=== PATIENT | female | born 1945 ===

== ENCOUNTER 2018-10-04 19:05 | Observation (INO) | payer MEDICARE ==
--- NOTE | 2018-10-04 20:10 | Emergency Department Record ---
History of Present Illness - General Chief Complaint: Recheck - Other Stated Complaint: INR HIGH Time Seen by Provider: 10/04/18 19:35 Source: Patient, Family Mode of arrival: Ambulatory Limitations: No limitations - History of Present Illness Initial Comments: pt sent in because she had an inr of 12 today. pt has recently had med changes but coumadin has remained the same MD Complaint: Abnormal lab Onset/Timin -: Hour(s) Initial Visit For: Other Returns Today for: Called because of abnormal lab/test Symptoms Since Prior Visit: No new symptoms - Related Data Home Medications Medication Instructions Recorded Confirmed Last Taken Atorvastatin Calcium [Lipitor] 80 mg PO DAILY 10/04/18 10/04/18 Unknown Allergies Allergy/AdvReac Type Severity Reaction Status Date / Time levofloxacin [From Levaquin] Allergy Severe RASH Verified 10/04/18 19:16 Penicillins Allergy Severe SWELLING Verified 10/04/18 19:16 (GENERAL) tetanus immune globulin Allergy Severe SWELLING Verified 10/04/18 19:16 (GENERAL) Travel Screening - Travel/Exposure Within Last 30 Days Have you traveled within the last 30 days?: No - Travel Symptoms Symptom Screening: None Review of Systems Reviewed: No additional complaints except as noted below Constitutional: Reports: As per HPI. Denies: Chills, Fever, Malaise, Night sweats, Weakness, Weight change Eyes: Reports: As per HPI. Denies: Eye discharge, Eye pain, Photophobia, Vision change ENT: Reports: As per HPI. Denies: Congestion, Dental pain, Ear pain, Epistaxis, Hearing loss, Throat pain Respiratory: Reports: As per HPI. Denies: Cough, Dyspnea, Hemoptysis, Stridor, Wheezes Cardiovascular: Reports: As per HPI. Denies: Arrhythmia, Chest pain, Dyspnea on exertion, Edema, Murmurs, Orthopnea, Palpitations, Paroxysmal nocturnal dyspnea, Rheumatic Fever, Syncope Endocrine: Reports: As per HPI. Denies: Fatigue, Heat or cold intolerance, Polydipsia, Polyuria Gastrointestinal: Reports: As per HPI. Denies: Abdominal pain, Constipation, Diarrhea, Hematemesis, Hematochezia, Melena, Nausea, Vomiting Genitourinary: Reports: As per HPI. Denies: Abnormal menses, Discharge, Dyspareunia, Dysuria, Frequency, Hematuria, Incontinence, Retention, Urgency Musculoskeletal: Reports: As per HPI. Denies: Arthralgia, Back pain, Gout, Joint swelling, Myalgia, Neck pain Skin: Reports: As per HPI. Denies: Bruising, Change in color, Change in hair/nails, Lesions, Pruritus, Rash Neurological: Reports: As per HPI. Denies: Abnormal gait, Confusion, Headache, Numbness, Paresthesias, Seizure, Tingling, Tremors, Vertigo, Weakness Psychiatric: Reports: As per HPI. Denies: Anxiety, Auditory hallucinations, Depression, Homicidal thoughts, Suicidal thoughts, Visual hallucinations Hematological/Lymphatic: Reports: As per HPI. Denies: Anemia, Blood Clots, Easy bleeding, Easy bruising, Swollen glands Past Medical History - SOCIAL HISTORY Smoking Status: Former smoker - RESPIRATORY Hx Respiratory Disorders: Yes Hx Sleep Apnea: Yes (better now) Hx of CPAP: No - CARDIOVASCULAR Hx Cardio Disorders: Yes Hx CHF: Yes Hx Hypertension: Yes Hx Irregular Heartbeat: Yes (A-fib) Comment:: high cholesterol; Murmur - NEURO Hx Neuro Disorders: Yes Hx CVA: Yes (found on CT scan -no deficits) - GI Hx GI Disorders: No - Hx Genitourinary Disorders: Yes Hx UTI: Yes - ENDOCRINE Hx Endocrine Disorders: No - MUSCULOSKELETAL Hx Musculoskeletal Disorders: Yes Hx Arthritis: Yes - PSYCH Hx Psych Problems: Yes Hx Depression: Yes - HEMATOLOGY/ONCOLOGY Hx Hematology/Oncology Disorders: Yes Hx Cancer: Yes Hx Chemotherapy: Yes Hx Radiation Therapy: No Family Medical History Any Significant Family History?: Yes Family Hx Comment (NOT TO BE USED IN PLACE OF ITEMS BELOW): Brother from Aortic rupture ; Sister w/fibro Hx Diabetes: Mother Hx Heart Disease: Father, Mother Physical Exam - General General Appearance: Alert, Oriented x3, Cooperative, No acute distress - Head Head exam: Normal inspection - Eye Eye exam: Normal appearance, PERRL, EOMI Pupils: Normal accommodation - ENT ENT exam: Normal exam, Mucous membranes moist, Normal external ear exam, Normal orophraynx Ear exam: Normal external inspection. negative: External canal tenderness Nasal Exam: Normal inspection. negative: Discharge, Sinus tenderness Mouth exam: Normal external inspection, Other (ecchymosis of tongue). negative: Tongue normal Teeth exam: Normal inspection. negative: Dental caries Throat exam: Normal inspection. negative: Tonsillar erythema, Tonsillar exudate - Neck Neck exam: Normal inspection, Full ROM. negative: Tenderness - Respiratory Respiratory exam: Normal lung sounds bilaterally. negative: Respiratory distress - Cardiovascular Cardiovascular Exam: Regular rate, Normal rhythm, Normal heart sounds - GI/Abdominal GI/Abdominal exam: Soft, Normal bowel sounds. negative: Tenderness - Rectal Rectal exam: Deferred - exam: Deferred - Extremities Extremities exam: Normal inspection, Full ROM, Normal capillary refill. negative: Tenderness Image of Full Body: 1 - ecchymosis Image of Hand: 1 - ecchymosis - Back Back exam: Reports: Normal inspection, Full ROM. Denies: Muscle spasm, Rash noted, Tenderness - Neurological Neurological exam: Alert, CN II-XII intact, Normal gait, Oriented X3 - Psychiatric Psychiatric exam: Normal affect, Normal mood - Skin Skin exam: Dry, Intact, Normal color, Warm Type of lesion: Other (ecchymosis) Course Vital Signs 10/04/18 19:22 Temperature 98.5 F Pulse Rate 68 Respiratory 16 Rate Blood Pressure 161/94 Pulse Ox 94 L Medical Decision Making - Lab Data Result diagrams: 10/04/18 20:16 Disposition Disposition: Admit Clinical Impression: Coumadin toxicity Qualifiers: Encounter type: initial encounter Injury intent: accidental or unintentional Qualified Code(s): T45.511A - Poisoning by anticoagulants, accidental (unintentional), initial encounter Decision to Admit: Admit from ER Decision to Admit Date: 10/04/18 Decision to Admit Time: 20:32 Forms: Patient Portal Access Quality - Blood Pressure Screening Does Patient Have Any of the Following: No Blood Pressure Classification: Hypertensive Reading Systolic Measurement: 161 Diastolic Measurement: 94
[2018-10-04 20:21] LABS: BASO % 0.8 % (0-6); EOS % 4.4 % (0-6); HEMATOCRIT 43.3 % (35.0-47.0); HEMOGLOBIN 13.8 gm/dl (11.6-16.0); LYMPH % 12.1 % (16-45); MEAN CELL VOLUME 86.4 fl (81-97); MEAN CORPUSCULAR HEMOGLOBIN 27.5 pg (27-33); MEAN CORPUSCULAR HGB CONC 31.9 g/dl (32-36); MEAN PLATELET VOLUME 9.6 fl (7.4-10.4); MONO % 8.7 % (0-9); PLATELET COUNT 489 K/uL (130-400); RED BLOOD COUNT 5.01 M/uL (3.80-5.40); RED CELL DISTRIBUTION WIDTH 14.2 % (11.5-14.5); WHITE BLOOD COUNT W/O DIFF 14.3 K/uL (4.2-12.2)
[2018-10-04 20:43] LABS: PROTHROMBIN TIME (PATIENT) 117.6 SECONDS (9.5-12.1)
[2018-10-04 20:44] LABS: INR 12.5
[2018-10-04] MEDS ORDERED: PHYTONADIONE 10 MG/ML AMPUL PO ONE (20:44)
[2018-10-04] MEDS ORDERED: ACETAMINOPHEN 500 MG TABLET PO PRN (22:56)
[2018-10-04] MEDS ORDERED: TEMAZEPAM 15 MG CAPSULE PO PRN (22:56)
[2018-10-04] MEDS: BUSPIRONE 5 MG TABLET PO SCH (23:50)
[2018-10-04] MEDS: CITALOPRAM 20 MG TABLET PO SCH (23:51)
[2018-10-05] MEDS ORDERED: PANTOPRAZOLE SODIUM 40 MG TABLET PO SCH (07:00)
[2018-10-05] MEDS: BUSPIRONE 5 MG TABLET PO SCH (09:20)
[2018-10-05] MEDS: CITALOPRAM 20 MG TABLET PO SCH (09:21)
[2018-10-05] MEDS ORDERED: POTASSIUM CHLORIDE 10 MEQ TAB PO SCH (10:00)
[2018-10-05] MEDS ORDERED: LISINOPRIL 20 MG TABLET PO SCH (10:00)
[2018-10-05] MEDS ORDERED: ATORVASTATIN 20 MG TABLET PO SCH (10:00)
[2018-10-05] MEDS ORDERED: FUROSEMIDE 20 MG TABLET PO SCH (10:00)
--- NOTE | 2018-10-05 10:12 | History & Physical ---
History of Present Illness - Date of Service Date of Service for History & Physical: 10/05/18 - History of Present Illness Admitting Diagnosis: hyperanticoagulated History of Present Illness: 72 yo female presents to [facility] ER for critical INT 12.6, has been on coumadin 5mg for several years s/p aortic pig valve replacement. Pt denies any diet or medication changes. Had labs drawn outpt and critical was called to nutrition director provider. Pt was contacted and instructed to go to ER. Pt reported to ER, repeat INR was 12.5, given Vitamin K 5mg and admitted for observation. Pt denies any falls or injuries but has noticed increased bruising without known cause on her legs, arms, mouth and tongue. Denies bloody stools. WBC 14.3, Hgb 13.8, Hct 43.3, Plt 489 Pt 117.6, INR 12.5 Repeat INR 2 this AM. 10/05/18 Pt resting in bed, denies any pain or concerns other than concern about INR changes with no other medication changes. Lungs CTA, IV/ holosystolic murmur noted. [facility] Pharmacist has been consulted and is addressing medication changes with pt PCP Dr Garrison. Will restart coumadin at 2.5mg, have pt f/u for repeat INR and see PCP next week. Case mgt consulted, will get follow up schedule and pt to d/c today. PCP [facility] Travel Screening - Travel/Exposure Within Last 30 Days Have you traveled within the last 30 days?: No - Travel/Exposure Within Last Year Have you traveled outside the [place] in the last year?: No - Additonal Travel Details Have you been exposed to anyone with a communicable illness?: No - Travel Symptoms Symptom Screening: None Review of Systems Constitutional: Reports: As per HPI. Denies: Chills, Fever, Malaise, Night sweats, Weakness, Weight change Eyes: Reports: As per HPI. Denies: Eye discharge, Eye pain, Photophobia, Vision change ENT: Reports: As per HPI. Denies: Congestion, Dental pain, Ear pain, Epistaxis, Hearing loss, Throat pain Respiratory: Reports: As per HPI. Denies: Cough, Dyspnea, Hemoptysis, Stridor, Wheezes Cardiovascular: Reports: As per HPI. Denies: Arrhythmia, Chest pain, Dyspnea on exertion, Edema, Murmurs, Orthopnea, Palpitations, Paroxysmal nocturnal dyspnea, Rheumatic Fever, Syncope Endocrine: Reports: As per HPI. Denies: Fatigue, Heat or cold intolerance, Polydipsia, Polyuria Gastrointestinal: Reports: As per HPI. Denies: Abdominal pain, Constipation, Diarrhea, Hematemesis, Hematochezia, Melena, Nausea, Vomiting Genitourinary: Reports: As per HPI. Denies: Abnormal menses, Discharge, Dyspareunia, Dysuria, Frequency, Hematuria, Incontinence, Retention, Urgency Musculoskeletal: Reports: As per HPI. Denies: Arthralgia, Back pain, Gout, Joint swelling, Myalgia, Neck pain Skin: Reports: As per HPI. Denies: Bruising, Change in color, Change in hair/nails, Lesions, Pruritus, Rash Neurological: Reports: As per HPI. Denies: Abnormal gait, Confusion, Headache, Numbness, Paresthesias, Seizure, Tingling, Tremors, Vertigo, Weakness Psychiatric: Reports: As per HPI. Denies: Anxiety, Auditory hallucinations, Depression, Homicidal thoughts, Suicidal thoughts, Visual hallucinations Hematological/Lymphatic: Reports: As per HPI. Denies: Anemia, Blood Clots, Easy bleeding, Easy bruising, Swollen glands Past Medical History - SOCIAL HISTORY Smoking Status: Former smoker Alcohol Use: None Drug Use: None - RESPIRATORY Hx Respiratory Disorders: Yes Hx Sleep Apnea: Yes (better now) Hx of CPAP: No - CARDIOVASCULAR Hx Cardio Disorders: Yes Hx CHF: Yes Hx Hypertension: Yes Hx Irregular Heartbeat: Yes (A-fib) Comment:: high cholesterol; Murmur - NEURO Hx Neuro Disorders: Yes Hx CVA: Yes (found on CT scan -no deficits) - GI Hx GI Disorders: No - Hx Genitourinary Disorders: Yes Hx UTI: Yes - ENDOCRINE Hx Endocrine Disorders: No - MUSCULOSKELETAL Hx Musculoskeletal Disorders: Yes Hx Arthritis: Yes - PSYCH Hx Psych Problems: Yes Hx Depression: Yes - HEMATOLOGY/ONCOLOGY Hx Hematology/Oncology Disorders: Yes Hx Cancer: Yes Hx Chemotherapy: Yes Hx Radiation Therapy: No Family Medical History Any Significant Family History?: Yes Family Hx Comment (NOT TO BE USED IN PLACE OF ITEMS BELOW): Brother from Aortic rupture ; Sister w/fibro Hx Diabetes: Mother Hx Heart Disease: Father, Mother H&P Meds/Allergies - Allergies Allergies: Allergies Allergy/AdvReac Type Severity Reaction Status Date / Time levofloxacin [From Levaquin] Allergy Severe RASH Verified 10/04/18 19:16 Penicillins Allergy Severe SWELLING Verified 10/04/18 19:16 (GENERAL) tetanus immune globulin Allergy Severe SWELLING Verified 10/04/18 19:16 (GENERAL) - Home Medications Home Medications Medication Instructions Recorded Confirmed Last Taken Atorvastatin Calcium [Lipitor] 80 mg PO DAILY 10/04/18 10/04/18 Unknown - Active Medications Active Medications: Current Medications Acetaminophen (Tylenol 500mg Tab) 1,000 mg PO Q6H PRN PRN Reason: PAIN - MILD(1-4)/FEVER Last Admin: 10/05/18 04:47 Dose: 1,000 mg Documented by: Atorvastatin Calcium (Lipitor) 80 mg PO DAILY [facility] Last Admin: 10/05/18 09:20 Dose: 80 mg Documented by: Buspirone HCl (Buspar) 7.5 mg PO BID [facility] Last Admin: 10/05/18 09:20 Dose: 7.5 mg Documented by: Citalopram Hydrobromide (Celexa) 10 mg PO DAILY [facility] Last Admin: 10/05/18 09:21 Dose: 10 mg Documented by: Furosemide (Lasix) 20 mg PO DAILY [facility] Last Admin: 10/05/18 09:21 Dose: 20 mg Documented by: Lisinopril (Zestril) 40 mg PO DAILY [facility] Pantoprazole Sodium (Protonix) 40 mg PO BIDAC [facility] Last Admin: 10/05/18 06:38 Dose: 40 mg Documented by: Potassium Chloride (Klor-Con) 10 meq PO DAILY [facility] Last Admin: 10/05/18 09:21 Dose: 10 meq Documented by: Ropinirole HCl (Requip) 1 mg PO QHS [facility] Last Admin: 10/04/18 23:50 Dose: 1 mg Documented by: Temazepam (Restoril) 15 mg PO QHS PRN PRN Reason: INSOMNIA Last Admin: 10/04/18 23:48 Dose: 15 mg Documented by: Physical Exam - Vital Signs Vital Signs: Vital Signs - Last 24 Hrs Temp Pulse Pulse Resp BP BP Pulse Ox 10/05/18 09:00 20 10/05/18 08:34 97.3 F L 85 18 148/76 94 L 10/05/18 06:00 98.1 F 80 16 125/66 91 L 10/05/18 02:00 97.2 F L 92 H 16 132/69 94 L 10/04/18 22:50 97.9 F 85 18 156/85 96 10/04/18 22:40 82 16 144/83 95 10/04/18 20:51 86 16 142/81 96 10/04/18 19:22 98.5 F 68 16 161/94 94 L - General General Appearance: Alert, Oriented x3, Cooperative, No acute distress Limitations: No limitations - Head Head exam: Normal inspection - Eye Eye exam: Normal appearance, PERRL, EOMI Pupils: Normal accommodation - ENT ENT exam: Normal exam, Mucous membranes moist, Normal external ear exam, Normal orophraynx Ear exam: Normal external inspection. negative: External canal tenderness Nasal Exam: Normal inspection. negative: Discharge, Sinus tenderness Mouth exam: Normal external inspection, Other (ecchymosis of tongue and left lower lip). negative: Tongue normal Teeth exam: Normal inspection. negative: Dental caries Throat exam: Normal inspection. negative: Tonsillar erythema, Tonsillar exudate - Neck Neck exam: Normal inspection, Full ROM. negative: Tenderness - Respiratory Respiratory exam: Normal lung sounds bilaterally. negative: Respiratory distress - Cardiovascular Cardiovascular Exam: Regular rate, Normal rhythm, Systolic murmur Peripheral Pulses: 2+: Radial (R), Radial (L), Dorsalis Pedis (R), Dorsalis Pedis (L) - GI/Abdominal GI/Abdominal exam: Soft, Normal bowel sounds. negative: Tenderness - Rectal Rectal exam: Deferred - exam: Deferred - Extremities Extremities exam: Normal inspection, Full ROM, Normal capillary refill. negati ve: Tenderness - Back Back exam: Reports: Normal inspection, Full ROM. Denies: Muscle spasm, Rash noted, Tenderness - Neurological Neurological exam: Alert, CN II-XII intact, Normal gait, Oriented X3 - Psychiatric Psychiatric exam: Normal affect, Normal mood - Skin Skin exam: Dry, Intact, Normal color, Warm Type of lesion: Other (ecchymosis) Results - Labs Result Diagrams: 10/04/18 20:16 Labs Last 24 Hours: Laboratory Results - last 24 hr 10/04/18 10/04/18 10/05/18 20:16 20:16 06:42 WBC 14.3 H RBC 5.01 Hgb 13.8 Hct 43.3 MCV 86.4 MCH 27.5 MCHC 31.9 L RDW 14.2 Plt Count 489 H MPV 9.6 Gran % 74.0 Lymphocytes % 12.1 L Monocytes % 8.7 Eosinophils % 4.4 Basophils % 0.8 Absolute Neutrophils 10.60 PT 117.6 H* 20.0 H INR 12.5 H* 2.0 VTE H&P Assessment - Risk for VTE Risk for VTE: Yes Risk Level: Moderate Risk Assessment Date: 10/05/18 Risk Assessment Time: 10:13 VTE Orders Placed or Will Be Placed: No VTE Reason for No Prophylaxis: Contraindicated (pt on coumadin)
--- NOTE | 2018-10-05 10:15 | Discharge Summary ---
Providers Discharge Summary Date: 10/05/18 Date of admission: 10/04/18 22:37 Expected Date of Discharge: 10/05/18 Attending physician: JOHANA CROOK Primary care physician: JOHANA CROOK Physical Exam - Vital Signs Vital Signs: Vital Signs - Last 24 Hrs Temp Pulse Pulse Resp BP BP Pulse Ox 10/05/18 09:00 20 10/05/18 08:34 97.3 F L 85 18 148/76 94 L 10/05/18 06:00 98.1 F 80 16 125/66 91 L 10/05/18 02:00 97.2 F L 92 H 16 132/69 94 L 10/04/18 22:50 97.9 F 85 18 156/85 96 10/04/18 22:40 82 16 144/83 95 10/04/18 20:51 86 16 142/81 96 10/04/18 19:22 98.5 F 68 16 161/94 94 L - General General Appearance: Alert, Oriented x3, Cooperative, No acute distress Limitations: No limitations - Head Head exam: Normal inspection - Eye Eye exam: Normal appearance, PERRL, EOMI Pupils: Normal accommodation - ENT ENT exam: Normal exam, Mucous membranes moist, Normal external ear exam, Normal orophraynx Ear exam: Normal external inspection. negative: External canal tenderness Nasal Exam: Normal inspection. negative: Discharge, Sinus tenderness Mouth exam: Normal external inspection, Other (ecchymosis of tongue and left lower lip). negative: Tongue normal Teeth exam: Normal inspection. negative: Dental caries Throat exam: Normal inspection. negative: Tonsillar erythema, Tonsillar exudate - Neck Neck exam: Normal inspection, Full ROM. negative: Tenderness - Respiratory Respiratory exam: Normal lung sounds bilaterally. negative: Respiratory distress - Cardiovascular Cardiovascular Exam: Regular rate, Normal rhythm, Systolic murmur Peripheral Pulses: 2+: Radial (R), Radial (L), Dorsalis Pedis (R), Dorsalis Pedis (L) - GI/Abdominal GI/Abdominal exam: Soft, Normal bowel sounds. negative: Tenderness - Rectal Rectal exam: Deferred - exam: Deferred - Extremities Extremities exam: Normal inspection, Full ROM, Normal capillary refill. negative: Tenderness - Back Back exam: Reports: Normal inspection, Full ROM. Denies: Muscle spasm, Rash noted, Tenderness - Neurological Neurological exam: Alert, CN II-XII intact, Normal gait, Oriented X3 - Psychiatric Psychiatric exam: Normal affect, Normal mood - Skin Skin exam: Dry, Intact, Normal color, Warm Type of lesion: Other (ecchymosis) Hospitalization - Hospitalization Admission Diagnosis: hyperanticoagulated - Problem List/Discharge Diagnosis (1) Coumadin toxicity Current Visit: Yes Status: Acute Discharge Diagnosis: Encounter type: initial encounter Injury intent: accidental or unintentional Qualified Code(s): T45.511A - Poisoning by anticoagulants, accidental (unintentional), initial encounter Base Code: T45.511A - POISONING BY ANTICOAGULANTS, ACCIDENTAL, INIT Comment: 10/05/18 -outpt INT 12.6, repeat in ER 12.5, given 5mg Vit K in ER, repeat INR 2 this AM -Counadmin 2.5mg QD started, INR being followed by [facility] Pharmacist and will see Dr Crook PCP in 1 week -D/C but pt instructed to go to ER for any falls or if she hits her head (2) DVT prophylaxis Current Visit: Yes Status: Acute Base Code: Z29.9 - ENCOUNTER FOR PROPHYLACTIC MEASURES, UNSPECIFIED Comment: 10/05/18 -coumadin therapy, INR 2, no other interventions - Hospitalization Course Disposition: Home, Self-Care Hospital Course: 72 yo female presents to [facility] ER for critical INT 12.6, has been on coumadin 5mg for several years s/p aortic pig valve replacement. Pt denies any diet or medication changes. Had labs drawn outpt and critical was called to soil conservation aide provider. Pt was contacted and instructed to go to ER. Pt reported to ER, repeat INR was 12.5, given Vitamin K 5mg and admitted for observation. Pt denies any falls or injuries but has noticed increased bruising without known cause on her legs, arms, mouth and tongue. Denies bloody stools. WBC 14.3, Hgb 13.8, Hct 43.3, Plt 489 Pt 117.6, INR 12.5 Repeat INR 2 this AM. 10/05/18 Pt resting in bed, denies any pain or concerns other than concern about INR changes with no other medication changes. Lungs CTA, IV/ holosystolic murmur noted. [facility] Pharmacist has been consulted and is addressing medication changes with pt PCP Dr Crook. Will restart coumadin at 2.5mg, have pt f/u for repeat INR and see PCP next week. Case mgt consulted, will get follow up schedule and pt to d/c today. PCP [facility] Abnormal Labs: Abnormal Lab Results 10/04/18 10/04/18 10/05/18 Range/Units 20:16 20:16 06:42 WBC 14.3 H (4.2-12.2) K/uL MCHC 31.9 L (32-36) g/dl Plt Count 489 H (130-400) K/uL Lymphocytes % 12.1 L (16-45) % PT 117.6 H* 20.0 H (9.5-12.1) SECONDS INR 12.5 H* Condition at Discharge: (2) Stable Discharge Medications - Discharge Medications Prescriptions: Warfarin Sodium [Coumadin] 2.5 mg PO ASDIR 14 Days #14 tab Home Medications: Ambulatory Orders Atorvastatin Calcium [Lipitor] 80 mg PO DAILY 10/04/18 [Last Taken Unknown] Acetaminophen [Tylenol 500Mg Tab] 1,000 mg PO Q6H PRN tablet 10/05/18 [Last Taken Unknown] Warfarin Sodium [Coumadin] 2.5 mg PO ASDIR 14 Days #14 tab 10/05/18 [Last Taken Unknown] Discharge Plan - Discharge Instructions Activity at Discharge: Increase Activity as Tolerated Diet at Discharge: Advance to Usual Diet Additional Instructions: Appointment with Dr. Crook on Saturday 10/14 at 2:40PM Quality Measures - Quality Measures Quality Measures: Advance Directives, Documentation of Current Medications in Medical Record, Elder Maltreatment Screen and Follow-Up Plan, Screening for High Blood Pressure and F/U Documented - Current Medications Quality Measure: Measure #130: Documentation of Current Medications Documentation of Current Medications: <Current Medications Documented/Reviewed> [G8427] - Blood Pressure Screening Quality Measure: Screening for High Blood Pressure and Follow-Up Documented Does Patient Have Any of the Following: Active Dx of HTN Blood Pressure Classification: Hypertensive Reading Systolic Measurement: 161 Diastolic Measurement: 94 Screening for High Blood Pressure: Patient Exclusion, Hx of HTN [G9744] - Advance Directives Quality Measure: Measure #47: Care Plan Advance Directives Established: No Advance Directives Information Provided To Patient: Already Provided Advance Directives on File: No Living Will: No Power of Reconnaissance Man: No Advance Care Planning: <Care Plan/Decision Maker Documented; Discussed & Docum ented> [[id number]] - Elder Abuse Suspicion Index Screening: Elder Abuse Suspicion Index Screening Rely on people for bathing, dressing, shopping, banking, etc: No Prevented from getting food, clothes, medication, etc: No Made to feel shamed or threatened by someone: No Forced to sign papers or use money against will: No Feel afraid, touched in ways not wanted or hurt physically: No Poor eye contact, withdrawn, malnourished, cuts or bruises: No Screening Result: Negative result EASI Reference Information: Lamont MONTERO, Carlos Enrique C, Tuan D, Jimmy Piedra.Development and validation of a tool to assist physicians identification of elder abuse: The Elder Abuse Suspicion Index (EASI ). Journal of Elder Abuse and Neglect, 2008; 20 (3): 276-300. - Elder Maltreatment Screen Quality Measures: Elder Maltreatment Screen and Follow-Up Plan Elder Maltreatment Screen: <Negative, No Follow-Up Plan Required> [G6259]
[2018-10-05] MEDS ORDERED: WARFARIN 2.5 MG TAB PO ONE (10:45)
[2018-10-05] MEDS ORDERED: ROPINIROLE HCL 1 MG TABLET PO SCH (22:00)
== END 2018-10-05 13:55 | disposition home or self-care (01) ==
LOC: ER 19:05 → MEDSURG 22:37
PROVIDERS: ADMIT Internal Medicine; ATTEND Internal Medicine
DX: T45.511A Poisoning by anticoagulants, accidental (unintentional), initial encounter (principal); I48.91 Unspecified atrial fibrillation; Z79.01 Long term (current) use of anticoagulants; I50.9 Heart failure, unspecified; I10 Essential (primary) hypertension; E78.00 Pure hypercholesterolemia, unspecified; G47.33 Obstructive sleep apnea (adult) (pediatric); M19.90 Unspecified osteoarthritis, unspecified site; Z87.891 Personal history of nicotine dependence; Z86.73 Personal history of transient ischemic attack (TIA), and cerebral infarction without residual deficits; Z85.9 Personal history of malignant neoplasm, unspecified; Z95.2 Presence of prosthetic heart valve
CPT/HCPCS: 85025; 85610 ×2; G0378 ×2; 99220; 99285

== ENCOUNTER 2018-11-28 12:04 | Emergency (ER) | payer MEDICARE ==
--- NOTE | 2018-11-28 12:19 | Emergency Department Record ---
History of Present Illness - General Chief complaint: Female Urogenital Problem Stated complaint: URINARY INFECTION Time Seen by Provider: 11/28/18 12:13 Source: Patient Mode of Arrival: Ambulatory Limitations: No limitations - History of Present Illness Initial comments: "I woke yesterday with a TUI". Pt with hx of similar. Has frequency, urgency, and dysuria. No fever or flank pains, No nausea or vomiting. No blood in urine. No hx renal stone. No AP - Related Data Previous Rx's Medication Instructions Recorded Acetaminophen [Tylenol 500Mg Tab] 1,000 mg PO Q6H PRN tablet 10/05/18 Nitrofurantoin [place] [Macrobid] 100 mg PO BID 7 Days #14 capsule 11/28/18 Allergies Allergy/AdvReac Type Severity Reaction Status Date / Time levofloxacin [From Levaquin] Allergy Severe RASH Unverified 11/07/18 13:05 Penicillins Allergy Severe SWELLING Unverified 11/07/18 13:05 (GENERAL) tetanus immune globulin Allergy Severe SWELLING Unverified 11/07/18 13:05 (GENERAL) bee venom protein (honey bee) Allergy Unverified 11/07/18 13:05 Review of Systems Constitutional: Denies: Chills, Fever, Weakness Eyes: Denies: Eye discharge, Photophobia ENT: Denies: Congestion Respiratory: Denies: Cough Cardiovascular: Denies: Arrhythmia, Chest pain, Syncope Endocrine: Reports: Polyuria. Denies: Fatigue Gastrointestinal: Denies: Abdominal pain, Diarrhea, Vomiting Genitourinary: Reports: Dysuria, Frequency, Urgency. Denies: Discharge, Hemat uria Musculoskeletal: Denies: Arthralgia, Back pain Skin: Denies: Bruising Neurological: Denies: Abnormal gait, Headache, Weakness Psychiatric: Denies: Anxiety Hematological/Lymphatic: Denies: Anemia Past Medical History - SOCIAL HISTORY Smoking Status: Former smoker Drug Use: None - RESPIRATORY Hx Respiratory Disorders: Yes Hx Sleep Apnea: Yes (better now) Hx of CPAP: No - CARDIOVASCULAR Hx Cardio Disorders: Yes Hx CHF: Yes Hx Hypertension: Yes Hx Irregular Heartbeat: Yes (A-fib) Comment:: high cholesterol; Murmur - NEURO Hx Neuro Disorders: Yes Hx CVA: Yes (found on CT scan -no deficits) - GI Hx GI Disorders: No - Hx Genitourinary Disorders: Yes Hx UTI: Yes - ENDOCRINE Hx Endocrine Disorders: No - MUSCULOSKELETAL Hx Musculoskeletal Disorders: Yes Hx Arthritis: Yes - PSYCH Hx Psych Problems: Yes Hx Depression: Yes - HEMATOLOGY/ONCOLOGY Hx Hematology/Oncology Disorders: Yes Hx Cancer: Yes Hx Chemotherapy: Yes Hx Radiation Therapy: No Family Medical History Family Hx Comment (NOT TO BE USED IN PLACE OF ITEMS BELOW): Brother from Aortic rupture ; Sister w/fibro Hx Diabetes: Mother Hx Heart Disease: Father, Mother Physical Exam - General General Appearance: Alert, Oriented x3, Cooperative, No acute distress - Head Head exam: Atraumatic, Normal inspection - Eye Eye exam: Normal appearance, PERRL - ENT ENT exam: Normal exam, Mucous membranes moist, Normal external ear exam, Normal orophraynx, TM's normal bilaterally - Neck Neck exam: Normal inspection, Full ROM. negative: Tenderness - Respiratory Respiratory exam: Normal lung sounds bilaterally. negative: Respiratory distress - Cardiovascular Cardiovascular Exam: Regular rate, Normal rhythm, Normal heart sounds - GI/Abdominal GI/Abdominal exam: Soft, Normal bowel sounds. negative: Tenderness - Extremities Extremities exam: Normal inspection - Back Back exam: Reports: Normal inspection. Denies: CVA tenderness (R), CVA tenderness (L) - Neurological Neurological exam: Alert, Normal gait, Oriented X3 - Psychiatric Psychiatric exam: Normal affect, Normal mood - Skin Skin exam: Normal color. negative: Rash Course - Reevaluation(s) Reevaluation #1: 11/28/18 12:17 hx of UTI. Anxious to leave ED as her ride is here. Disposition Disposition: Discharge Clinical Impression: UTI (urinary tract infection) Disposition: Home, Self-Care Condition: (1) Good Instructions: Urinary Tract Infection in Women (ED) Additional Instructions: take meds as instructed. Dr. Garrison in one week Return to the ED as needed. Prescriptions: Nitrofurantoin [place] [Macrobid] 100 mg PO BID 7 Days #14 capsule Forms: Patient Portal Access Time of Disposition: 12:19 Quality - Quality Measures Quality Measures: N/A - Blood Pressure Screening Does Patient Have Any of the Following: No Blood Pressure Classification: Hypertensive Reading Systolic Measurement: 120 Diastolic Measurement: 92 Screening for High Blood Pressure: Patient Exclusion, Hx of HTN [G9744]
[2018-11-28 12:24] LABS: URINE BILIRUBIN NEGATIVE (NEGATIVE); URINE BLOOD MODERATE (NEGATIVE); URINE COLOR YELLOW; URINE GLUCOSE (UA) NEGATIVE (NEGATIVE); URINE KETONE NEGATIVE (NEGATIVE); URINE LEUKOCYTE ESTERASE SMALL (NEGATIVE); URINE NITRITE NEGATIVE (NEGATIVE); URINE PROTEIN NEGATIVE (NEGATIVE); URINE UROBILINOGEN 0.2 E.U./dL (0.20 - 1.00)
[2018-11-28 12:33] LABS: URINE APPEARANCE SL CLOUDY
[2018-11-28 12:34] LABS: URINE HYALINE CAST 0 - 5 /lpf
[2018-11-28 12:35] LABS: URINE BACTERIA FEW
== END 2018-11-28 12:35 | disposition home or self-care (01) ==
LOC: ER 12:04
DX: N39.0 Urinary tract infection, site not specified (principal); Z79.01 Long term (current) use of anticoagulants; E78.00 Pure hypercholesterolemia, unspecified; I48.91 Unspecified atrial fibrillation; Z95.2 Presence of prosthetic heart valve; Z87.891 Personal history of nicotine dependence
CPT/HCPCS: 81001; 85610; 99282

== ENCOUNTER 2019-01-20 19:57 | Emergency (ER) | payer MEDICARE ==
[2019-01-20 20:15] LABS: URINE APPEARANCE CLOUDY; URINE BILIRUBIN NEGATIVE (NEGATIVE); URINE BLOOD LARGE (NEGATIVE); URINE COLOR YELLOW; URINE GLUCOSE (UA) NEGATIVE (NEGATIVE); URINE KETONE NEGATIVE (NEGATIVE); URINE LEUKOCYTE ESTERASE LARGE (NEGATIVE); URINE NITRITE NEGATIVE (NEGATIVE); URINE UROBILINOGEN 0.2 E.U./dL (0.20 - 1.00)
[2019-01-20 20:27] LABS: URINE BACTERIA 2+; URINE RBC 21 - 35 (NONE SEEN); URINE SQUAMOUS EPITHELIAL CELL 0 - 2 /hpf
[2019-01-20] MEDS ORDERED: 0.9 % SODIUM CHLORIDE 1,000 ML BAG IV ONE (20:45)
[2019-01-20 21:09] LABS: ABSOLUTE NEUTROPHIL COUNT 7.26; BASO % 0.8 % (0-6); GRAN % 63.6 % (47-80); HEMATOCRIT 41.8 % (35.0-47.0); HEMOGLOBIN 13.2 gm/dl (11.6-16.0); LYMPH % 19.8 % (16-45); MEAN CELL VOLUME 87.1 fl (81-97); MEAN CORPUSCULAR HEMOGLOBIN 27.5 pg (27-33); MEAN CORPUSCULAR HGB CONC 31.6 g/dl (32-36); MEAN PLATELET VOLUME 9.2 fl (7.4-10.4); MONO % 9.8 % (0-9); PLATELET COUNT 380 K/uL (130-400); RED CELL DISTRIBUTION WIDTH 14.4 % (11.5-14.5); WHITE BLOOD COUNT W/O DIFF 11.4 K/uL (4.2-12.2)
[2019-01-20 21:19] LABS: CREATININE 1.1 mg/dL (0.5-0.9)
[2019-01-20 21:23] LABS: INR 2.7; PROTHROMBIN TIME (PATIENT) 26.4 SECONDS (9.5-12.1)
[2019-01-20 21:26] LABS: NTpro B-NATRIURETIC PEPTIDE 336.3 pg/mL (<125)
[2019-01-20] MEDS ORDERED: CEFAZOLIN 1 Gram 1 GM/50 ML BAG IVPB ONE (22:03)
[2019-01-20] MEDS ORDERED: CEPHALEXIN 500 MG CAPSULE PO STA (22:12)
--- NOTE | 2019-01-20 22:12 | Emergency Department Record ---
History of Present Illness - General Chief complaint: Female Urogenital Problem Stated complaint: UTI Time Seen by Provider: 01/20/19 20:34 Source: Patient Mode of Arrival: Ambulatory Limitations: No limitations - History of Present Illness Initial comments: pt thinks she has a uti. she has them frequently and just finished macrobid. she has no n/v. she thought she might have had a fever. she states she feels 'dry' and needs her inr checked MD Complaint: Other Onset/Timin -: Hour(s) Location: Perineum Radiation: R flank Severity: Moderate Severity scale (1-10): 5 Quality: Burning Consistency: Intermittent Associated Symptoms: Denies other symptoms - Related Data Home Medications Medication Instructions Recorded Confirmed Last Taken Aspirin [Aspir-Low] 1 tab PO DAILY 01/20/19 01/20/19 01/20/19 Previous Rx's Medication Instructions Recorded Cephalexin [Keflex] 500 mg PO TID #20 cap 01/20/19 Allergies Allergy/AdvReac Type Severity Reaction Status Date / Time levofloxacin [From Levaquin] Allergy Severe RASH Verified 01/20/19 21:04 Penicillins Allergy Severe SWELLING Verified 01/20/19 21:04 (GENERAL) tetanus immune globulin Allergy Severe SWELLING Verified 01/20/19 21:04 (GENERAL) bee venom protein (honey bee) Allergy SWELLING Verified 01/20/19 21:04 (GENERAL) Travel Screening - Travel/Exposure Within Last 30 Days Have you traveled within the last 30 days?: No - Travel/Exposure Within Last Year Have you traveled outside the [place] in the last year?: No - Additonal Travel Details Have you been exposed to anyone with a communicable illness?: No - Travel Symptoms Symptom Screening: None Review of Systems Reviewed: No additional complaints except as noted below Constitutional: Reports: As per HPI. Denies: Chills, Fever, Malaise, Night sweats, Weakness, Weight change Eyes: Reports: As per HPI. Denies: Eye discharge, Eye pain, Photophobia, Vision change ENT: Reports: As per HPI. Denies: Congestion, Dental pain, Ear pain, Epistaxis, Hearing loss, Throat pain Respiratory: Reports: As per HPI. Denies: Cough, Dyspnea, Hemoptysis, Stridor, Wheezes Cardiovascular: Reports: As per HPI. Denies: Arrhythmia, Chest pain, Dyspnea on exertion, Edema, Murmurs, Orthopnea, Palpitations, Paroxysmal nocturnal dyspnea, Rheumatic Fever, Syncope Endocrine: Reports: As per HPI. Denies: Fatigue, Heat or cold intolerance, Polydipsia, Polyuria Gastrointestinal: Reports: As per HPI. Denies: Abdominal pain, Constipation, Diarrhea, Hematemesis, Hematochezia, Melena, Nausea, Vomiting Genitourinary: Reports: As per HPI. Denies: Abnormal menses, Discharge, Dyspareunia, Dysuria, Frequency, Hematuria, Incontinence, Retention, Urgency Musculoskeletal: Reports: As per HPI. Denies: Arthralgia, Back pain, Gout, Joint swelling, Myalgia, Neck pain Skin: Reports: As per HPI. Denies: Bruising, Change in color, Change in hair/nails, Lesions, Pruritus, Rash Neurological: Reports: As per HPI. Denies: Abnormal gait, Confusion, Headache, Numbness, Paresthesias, Seizure, Tingling, Tremors, Vertigo, Weakness Psychiatric: Reports: As per HPI. Denies: Anxiety, Auditory hallucinations, Depression, Homicidal thoughts, Suicidal thoughts, Visual hallucinations Hematological/Lymphatic: Reports: As per HPI. Denies: Anemia, Blood Clots, Easy bleeding, Easy bruising, Swollen glands Past Medical History - SOCIAL HISTORY Smoking Status: Former smoker Alcohol Use: None Drug Use: None - RESPIRATORY Hx Respiratory Disorders: Yes Hx Sleep Apnea: Yes (better now) Hx of CPAP: No - CARDIOVASCULAR Hx Cardio Disorders: Yes Hx CHF: Yes Hx Hypertension: Yes Hx Irregular Heartbeat: Yes (A-fib) Comment:: high cholesterol; Murmur - NEURO Hx Neuro Disorders: Yes Hx CVA: Yes (found on CT scan -no deficits) - GI Hx GI Disorders: No - Hx Genitourinary Disorders: Yes Hx UTI: Yes - ENDOCRINE Hx Endocrine Disorders: No - MUSCULOSKELETAL Hx Musculoskeletal Disorders: Yes Hx Arthritis: Yes - PSYCH Hx Psych Problems: Yes Hx Anxiety: Yes Hx Depression: Yes - HEMATOLOGY/ONCOLOGY Hx Hematology/Oncology Disorders: Yes Hx Cancer: Yes Hx Chemotherapy: Yes Hx Radiation Therapy: No Family Medical History Any Significant Family History?: Yes Family Hx Comment (NOT TO BE USED IN PLACE OF ITEMS BELOW): Brother from Aortic rupture ; Sister w/fibro Hx Diabetes: Mother Hx Heart Disease: Father, Mother Physical Exam - General General Appearance: Alert, Oriented x3, Cooperative, Mild distress - Head Head exam: Normal inspection - Eye Eye exam: Normal appearance, PERRL, EOMI Pupils: Normal accommodation - ENT ENT exam: Normal exam, Mucous membranes moist, Normal external ear exam, Normal orophraynx Ear exam: Normal external inspection. negative: External canal tenderness Nasal Exam: Normal inspection. negative: Discharge, Sinus tenderness Mouth exam: Normal external inspection, Tongue normal Teeth exam: Normal inspection. negative: Dental caries Throat exam: Normal inspection. negative: Tonsillar erythema, Tonsillar exudate - Neck Neck exam: Normal inspection, Full ROM. negative: Tenderness - Respiratory Respiratory exam: Normal lung sounds bilaterally. negative: Respiratory distress - Cardiovascular Cardiovascular Exam: Regular rate, Normal rhythm, Normal heart sounds - GI/Abdominal GI/Abdominal exam: Soft, Normal bowel sounds. negative: Tenderness - Rectal Rectal exam: Deferred - exam: Deferred - Extremities Extremities exam: Normal inspection, Full ROM, Normal capillary refill. negative: Tenderness - Back Back exam: Reports: Normal inspection, Full ROM. Denies: Muscle spasm, Rash noted, Tenderness - Neurological Neurological exam: Alert, CN II-XII intact, Normal gait, Oriented X3 - Psychiatric Psychiatric exam: Normal affect, Normal mood - Skin Skin exam: Dry, Intact, Normal color, Warm Course Vital Signs 01/20/19 01/20/19 20:10 21:08 Temperature 98.9 F Pulse Rate [ 78 64 Pulse Ox Probe] Respiratory 20 20 Rate Blood Pressure 192/80 163/84 [Right Arm] Pulse Ox 97 98 - Reevaluation(s) Reevaluation #1: 01/20/19 22:11 pt feels better Medical Decision Making - Lab Data Result diagrams: 01/20/19 21:00 01/20/19 21:00 Lab Results 01/20/19 01/20/19 01/20/19 Range/Units 20:10 21:00 21:00 WBC 11.4 (4.2-12.2) K/uL RBC 4.80 (3.80-5.40) M/uL Hgb 13.2 (11.6-16.0) gm/dl Hct 41.8 (35.0-47.0) % MCV 87.1 (81-97) fl MCH 27.5 (27-33) pg MCHC 31.6 L (32-36) g/dl RDW 14.4 (11.5-14.5) % Plt Count 380 (130-400) K/uL MPV 9.2 (7.4-10.4) fl Gran % 63.6 (47-80) % Lymphocytes % 19.8 (16-45) % Monocytes % 9.8 H (0-9) % Eosinophils % 6.0 (0-6) % Basophils % 0.8 (0-6) % Absolute Neutrophils 7.26 PT 26.4 H (9.5-12.1) SECONDS INR 2.7 Sodium (136-145) mmol/L Potassium (3.4-4.5) mmol/L Chloride (98-107) mmol/L Carbon Dioxide (22-29) mmol/L Anion Gap (7-16) BUN (8-23) mg/dL Creatinine (0.5-0.9) mg/dL Estimated GFR mL/min Random Glucose (74-109) mg/dL Calcium (8.8-10.2) mg/dL NT-Pro-B Natriuret Pep (<125) pg/mL Urine Color Yellow Urine Appearance Cloudy Urine pH 6.0 (5.0-8.0) Ur Specific [place] 1.010 (1.002-1.030) Urine Protein 100 mg/dl H (NEGATIVE) Urine Glucose (UA) Negative (NEGATIVE) Urine Ketones Negative (NEGATIVE) Urine Blood Large H (NEGATIVE) Urine Nitrite Negative (NEGATIVE) Urine Bilirubin Negative (NEGATIVE) Urine Urobilinogen 0.2 (0.20 - 1.00) E.U./dL Ur Leukocyte Esterase Large H (NEGATIVE) Urine RBC 21 - 35 (NONE SEEN) Urine WBC Too numerous to cnt (0-2/hpf) U Non-Squamous Epi Cells 0 - 2 /hpf Urine Bacteria 2+ / Range/Units 21:00 WBC (4.2-12.2) K/uL RBC (3.80-5.40) M/uL Hgb (11.6-16.0) gm/dl Hct (35.0-47.0) % MCV (81-97) fl MCH (27-33) pg MCHC (32-36) g/dl RDW (11.5-14.5) % Plt Count (130-400) K/uL MPV (7.4-10.4) fl Gran % (47-80) % Lymphocytes % (16-45) % Monocytes % (0-9) % Eosinophils % (0-6) % Basophils % (0-6) % Absolute Neutrophils PT (9.5-12.1) SECONDS INR Sodium 137 (136-145) mmol/L Potassium 4.5 (3.4-4.5) mmol/L Chloride 101 (98-107) mmol/L Carbon Dioxide 26.0 (22-29) mmol/L Anion Gap 10.0 (7-16) BUN 26 H (8-23) mg/dL Creatinine 1.1 H (0.5-0.9) mg/dL Estimated GFR 52 mL/min Random Glucose 117 H (74-109) mg/dL Calcium 8.8 (8.8-10.2) mg/dL NT-Pro-B Natriuret Pep 336.30 H (<125) pg/mL Urine Color Urine Appearance Urine pH (5.0-8.0) Ur Specific [place] (1.002-1.030) Urine Protein (NEGATIVE) Urine Glucose (UA) (NEGATIVE) Urine Ketones (NEGATIVE) Urine Blood (NEGATIVE) Urine Nitrite (NEGATIVE) Urine Bilirubin (NEGATIVE) Urine Urobilinogen (0.20 - 1.00) E.U./dL Ur Leukocyte Esterase (NEGATIVE) Urine RBC (NONE SEEN) Urine WBC (0-2/hpf) U Non-Squamous Epi Cells /hpf Urine Bacteria Disposition Disposition: Discharge Clinical Impression: UTI (urinary tract infection) Qualifiers: Urinary tract infection type: acute cystitis Hematuria presence: without hematuria Qualified Code(s): N30.00 - Acute cystitis without hematuria Disposition: Home, Self-Care Condition: (1) Good Instructions: Urinary Tract Infection in Women (ED) Additional Instructions: follow up with family doctor next week. return sooner if worse. have INR checked next week Prescriptions: Cephalexin [Keflex] 500 mg PO TID #20 cap Quality - Quality Measures Quality Measures: N/A - Blood Pressure Screening Does Patient Have Any of the Following: No Blood Pressure Classification: Pre-Hypertensive BP Reading Systolic Measurement: 163 Diastolic Measurement: 84 Screening for High Blood Pressure: < Pre-Hypertensive BP, F/U Documented > [G8950] Pre-Hypertensive Follow-up Interventions: Follow-up with rescreen every year.
== END 2019-01-20 22:57 | disposition home or self-care (01) ==
LOC: ER 19:57
DX: N30.00 Acute cystitis without hematuria (principal); I10 Essential (primary) hypertension; I50.9 Heart failure, unspecified; I48.91 Unspecified atrial fibrillation; Z87.891 Personal history of nicotine dependence
CPT/HCPCS: 99284 ×2; 96365; 85025; 85610; 80048; 81001; 83880; J0690; J7030